=== PATIENT | male | born 1955 | race Caucasian/White ===

== ENCOUNTER 2018-08-31 08:24 | Inpatient (IN) | payer MEDICAID ==
[~2018-08-31] VITALS: Ht 172.7 cm; Wt 102.3 kg
[~2018-08-31 08:24] MED LIST: AMLO10TA12 PO; CARV3.1240 PO; FURO40TA4 PO; POTA10TA79 PO; RIVA20TA PO
[2018-08-31] MEDS ORDERED: cloNIDine HCL 0.1 MG TAB PO ONE (09:00)
[2018-08-31 09:15] LABS: Basophils # (auto) 0 uL; Eosinophils # (auto) 0 uL
[2018-08-31 09:17] LABS: Basophils % (auto) 0.3 % (0.0-2.0); Hematocrit 37.5 % (41.0-53.0); Hemoglobin 10.8 g/dL (13.5-17.5); Lymphocytes # (auto) 0.6 uL; Lymphocytes % (auto) 4.7 % (10.0-50.0); Mean Corpuscular Hemoglobin 20.8 pg (28.0-32.0); Monocytes % (auto) 7.9 % (0.0-12.0); Neutrophils # (auto) 11.5 uL; Neutrophils % (auto) 87.1 % (37.0-80.0); Platelet Count (auto) 294 10^3/uL (140-450); Red Blood Cells 5.22 10^6/uL (4.5-5.90); Red Cell Distribution Width 20.2 % (11.8-14.3); White Blood Cell 13.2 10^3/uL (4.4-10.8)
[2018-08-31 09:20] LABS: Mean Corpuscular Volume 71.8 fL (80.0-100.0)
[2018-08-31 09:23] LABS: INR 1.16 (0.9-1.15); Partial Thromboplastin Time 24.8 sec (23.64-32.05)
[2018-08-31 09:43] LABS: Albumin 3.7 g/dL (3.4-5.0); Anion Gap 9 (5-15); Blood Urea Nitrogen 14 mg/dL (7-18); Calcium 9.5 mg/dL (8.5-10.1); Carbon Dioxide 30 mmol/L (21-32); Chloride 96 mmol/L (98-107); Glucose 206 mg/dL (74-106); Magnesium 2.1 mg/dL (1.6-2.6); Potassium 3.6 mmol/L (3.5-5.1); Sodium 135 mmol/L (136-145)
[2018-08-31 09:50] LABS: Alanine Aminotransferase 310 U/L (16-61); Alkaline Phosphatase 199 U/L (45-117); Aspartate Aminotransferase 175 U/L (15-37); BUN/Creatinine Ratio 11.7; Bilirubin, Total 2.8 mg/dL (0.2-1.0); GFR African American 79 mL/min; GFR Non-African American 65 mL/min; Total Protein 8.3 g/dL (6.4-8.2)
[2018-08-31 10:06] LABS: Lipase 25491 U/L (73-393)
[2018-08-31] MEDS ORDERED: ONDANSETRON HCL 4 MG/2 ML VIAL IV ONE (10:30)
[2018-08-31] MEDS ORDERED: MORPHINE SULF INJ 2 MG/ML SYRINGE 1ML IV ONE (10:30)
[2018-08-31 10:55] LABS: Amylase 3490 U/L (25-115)
[2018-08-31] MEDS ORDERED: SODIUM CHLORIDE 0.9% 2,000 ML IV ONE (11:30)
[2018-08-31] MEDS ORDERED: HYDROmorphone HCL 2 MG/ML VL IM ONE (12:30)
[2018-08-31] MEDS ORDERED: PROMETHAZINE HCL 25 MG/ML 1ML IV ONE (12:30)
[2018-08-31] MEDS ORDERED: HYDROmorphone HCL 2 MG/ML VL IV ONE (12:30)
[2018-08-31] MEDS ORDERED: hydrALAZINE HCL 20 MG/ML VL IV ONE (13:30)
[2018-08-31 15:08] LABS: Amphetamine Screen, Urine NEGATIVE (NEGATIVE); Barbiturate Scree,Urine NEGATIVE (NEGATIVE); Benzodiazephine Screen, Urine NEGATIVE (NEGATIVE); Cannabinoid Screen, Urine NEGATIVE (NEGATIVE); Cocaine Screen, Urine NEGATIVE (NEGATIVE); Phencyclidine Screen, Urine NEGATIVE (NEGATIVE)
[2018-08-31 15:12] LABS: Urine Bacteria FEW /hpf (None Seen); Urine Blood Negative /uL (Negative); Urine Mucus FEW (None Seen); Urine Specific Gravity 1.027 (1.001-1.035); Urine WBC 1 /hpf (0 - 3)
[2018-08-31 15:16] LABS: Opiate Scree,Urine POSITIVE (NEGATIVE)
[2018-08-31] MEDS ORDERED: ONDANSETRON HCL 4 MG/2 ML VIAL IV PRN (17:00)
[2018-08-31] MEDS ORDERED: HYDROmorphone HCL 2 MG/ML VL IV PRN (17:00)
[2018-08-31] MEDS ORDERED: LABETALOL HCL 5 MG/ML ML 20ML VIAL IV PRN (17:00)
[2018-08-31] MEDS: SODIUM CHLORIDE 0.9% 1,000 ML IV SCH (17:05)
[2018-08-31] MEDS: LEVOFLOXACIN 750MG 150 ML IV SCH (17:05)
[2018-08-31] MEDS: CARVEDILOL 3.125 MG TAB PO SCH (21:59)
[2018-08-31] MEDS: metroNIDAZOLE 500MG/100ML 100 ML IV SCH (21:59)
[2018-08-31] MEDS: FAMOTIDINE (10MG/ML) 2ML VL IV SCH (21:59)
[2018-09-01 00:10] VITALS: BP 142/85
[2018-09-01 00:15] VITALS: BP 142/85
[2018-09-01] MEDS: SODIUM CHLORIDE 0.9% 1,000 ML IV SCH ×3 (03:41→23:00)
[2018-09-01 05:00] VITALS: BP 117/69
[2018-09-01] MEDS: metroNIDAZOLE 500MG/100ML 100 ML IV SCH ×3 (05:37→21:30)
[2018-09-01 08:00] VITALS: BP 121/76
[2018-09-01] MEDS: FAMOTIDINE (10MG/ML) 2ML VL IV SCH ×2 (09:11→21:30)
[2018-09-01] MEDS: CARVEDILOL 3.125 MG TAB PO SCH ×2 (09:11→21:31)
[2018-09-01] MEDS: amLODIPine BESYLATE 5 MG TAB PO SCH (09:11)
[2018-09-01 09:52] LABS: Magnesium 2.1 mg/dL (1.6-2.6); Potassium 4.5 mmol/L (3.5-5.1)
[2018-09-01 09:59] LABS: Albumin 3.2 g/dL (3.4-5.0); BUN/Creatinine Ratio 15.6; Bilirubin, Total 0.9 mg/dL (0.2-1.0); Calcium 8.5 mg/dL (8.5-10.1); Total Protein 6.6 g/dL (6.4-8.2)
[2018-09-01 11:20] LABS: Basophils # (auto) 0 uL; Basophils % (auto) 0.2 % (0.0-2.0); Eosinophils # (auto) 0 uL; Eosinophils % (auto) 0.1 % (0.0-7.0); Hemoglobin 10.4 g/dL (13.5-17.5)
[2018-09-01 11:23] LABS: Hematocrit 36.2 % (41.0-53.0); Lymphocytes # (auto) 1.4 uL; Lymphocytes % (auto) 8.9 % (10.0-50.0); Mean Corpuscular Hemoglobin 20.9 pg (28.0-32.0); Mean Corpuscular Hgb Conc. 28.8 g/dL (32.0-36.0); Mean Corpuscular Volume 72.7 fL (80.0-100.0); Monocytes # (auto) 1.4 uL; Neutrophils # (auto) 12.4 uL; Neutrophils % (auto) 81.8 % (37.0-80.0); Platelet Count (auto) 255 10^3/uL (140-450); Red Blood Cells 4.97 10^6/uL (4.5-5.90); White Blood Cell 15.1 10^3/uL (4.4-10.8)
[2018-09-01 11:52] LABS: Red Cell Distribution Width 20.7 % (11.8-14.3)
[2018-09-01] MEDS: LEVOFLOXACIN 750MG 150 ML IV SCH (16:59)
[2018-09-01 17:00] VITALS: BP 133/79
[2018-09-01 22:00] VITALS: BP 133/85
[2018-09-02] MEDS: SODIUM CHLORIDE 0.9% 1,000 ML IV SCH ×2 (02:04→18:10)
[2018-09-02 05:30] VITALS: BP 114/67
[2018-09-02] MEDS: metroNIDAZOLE 500MG/100ML 100 ML IV SCH ×3 (05:30→21:48)
[2018-09-02 07:23] LABS: Basophils # (auto) 0 uL; Basophils % (auto) 0.1 % (0.0-2.0); Eosinophils # (auto) 0 uL; Eosinophils % (auto) 0.1 % (0.0-7.0); Lymphocytes # (auto) 2.1 uL
[2018-09-02 07:29] LABS: Hematocrit 31.2 % (41.0-53.0); Hemoglobin 8.9 g/dL (13.5-17.5); Lymphocytes % (auto) 15.8 % (10.0-50.0); Mean Corpuscular Hemoglobin 20.6 pg (28.0-32.0); Mean Corpuscular Hgb Conc. 28.6 g/dL (32.0-36.0); Mean Corpuscular Volume 71.9 fL (80.0-100.0); Monocytes # (auto) 1.4 uL; Monocytes % (auto) 10.4 % (0.0-12.0); Neutrophils # (auto) 9.7 uL; Neutrophils % (auto) 73.6 % (37.0-80.0); Platelet Count (auto) 225 10^3/uL (140-450); Red Blood Cells 4.33 10^6/uL (4.5-5.90); White Blood Cell 13.2 10^3/uL (4.4-10.8)
[2018-09-02 08:00] VITALS: BP 104/64
[2018-09-02 08:41] LABS: Red Cell Distribution Width 20.2 % (11.8-14.3)
[2018-09-02 09:15] LABS: Albumin 2.7 g/dL (3.4-5.0); Calcium 8.3 mg/dL (8.5-10.1); Potassium 4.1 mmol/L (3.5-5.1)
[2018-09-02 09:18] LABS: Bilirubin, Total 0.6 mg/dL (0.2-1.0); Total Protein 6.5 g/dL (6.4-8.2)
[2018-09-02] MEDS: FAMOTIDINE (10MG/ML) 2ML VL IV SCH ×2 (09:27→21:48)
[2018-09-02] MEDS: CARVEDILOL 3.125 MG TAB PO SCH ×2 (09:28→22:02)
[2018-09-02] MEDS: amLODIPine BESYLATE 5 MG TAB PO SCH (09:28)
[2018-09-02 12:00] VITALS: BP 112/71
[2018-09-02 17:00] VITALS: BP 125/77
[2018-09-02] MEDS: LEVOFLOXACIN 750MG 150 ML IV SCH (17:38)
[2018-09-02 22:00] VITALS: BP 131/83
[2018-09-03] MEDS: SODIUM CHLORIDE 0.9% 1,000 ML IV SCH ×2 (04:58→15:00)
[2018-09-03 05:00] VITALS: BP 124/82
[2018-09-03] MEDS: metroNIDAZOLE 500MG/100ML 100 ML IV SCH ×2 (05:39→14:00)
[2018-09-03 06:52] LABS: Eosinophils # (auto) 0.1 uL
[2018-09-03 06:55] LABS: Hemoglobin 9.2 g/dL (13.5-17.5)
[2018-09-03 07:15] LABS: Potassium 3.7 mmol/L (3.5-5.1)
[2018-09-03 07:20] LABS: BUN/Creatinine Ratio 14.5; Calcium 8.4 mg/dL (8.5-10.1)
[2018-09-03 07:29] LABS: Basophils # (auto) 0.2 uL; Basophils % (auto) 1.3 % (0.0-2.0); Eosinophils % (auto) 0.5 % (0.0-7.0); Hematocrit 31.7 % (41.0-53.0); Lymphocytes % (auto) 15.6 % (10.0-50.0); Mean Corpuscular Hgb Conc. 29.2 g/dL (32.0-36.0); Monocytes # (auto) 1.1 uL; Monocytes % (auto) 8.4 % (0.0-12.0); Neutrophils # (auto) 9.6 uL; Neutrophils % (auto) 74.2 % (37.0-80.0); Nucleated Red Blood Cells % 0.1 %; Platelet Count (auto) 235 10^3/uL (140-450)
[2018-09-03 08:41] VITALS: BP 114/70
[2018-09-03] MEDS: FAMOTIDINE (10MG/ML) 2ML VL IV SCH (11:05)
[2018-09-03] MEDS: amLODIPine BESYLATE 5 MG TAB PO SCH (11:06)
[2018-09-03] MEDS: CARVEDILOL 3.125 MG TAB PO SCH (11:07)
[2018-09-03] MEDS ORDERED: CYANOCOBALAMIN (B-12) 1000 MCG/1 ML VIAL IM ONE (13:00)
[2018-09-03 14:00] VITALS: BP 109/64
[2018-09-03] MEDS ORDERED: FUROSEMIDE 40 MG/4 ML VIAL IV ONE (14:45)
[2018-09-03] MEDS: LEVOFLOXACIN 750MG 150 ML IV SCH (16:58)
== END 2018-09-03 18:15 | disposition home or self-care (01) | DRG 720 ==
LOC: ER 08:24 → TELE 16:53 → TELE-CENTR 23:48
PROVIDERS: ADMIT Nurse Practitioner Acute Care; ATTEND Internal Medicine
DX: A41.9 Sepsis, unspecified organism (principal); K85.10 Biliary acute pancreatitis without necrosis or infection; D68.9 Coagulation defect, unspecified; E11.22 Type 2 diabetes mellitus with diabetic chronic kidney disease; E87.1 Hypo-osmolality and hyponatremia; I50.32 Chronic diastolic (congestive) heart failure; I13.0 Hypertensive heart and chronic kidney disease with heart failure and stage 1 through stage 4 chronic kidney disease, or unspecified chronic kidney disease; K80.20 Calculus of gallbladder without cholecystitis without obstruction; E66.9 Obesity, unspecified; D50.9 Iron deficiency anemia, unspecified; I25.10 Atherosclerotic heart disease of native coronary artery without angina pectoris; J44.9 Chronic obstructive pulmonary disease, unspecified; K29.80 Duodenitis without bleeding; N18.2 Chronic kidney disease, stage 2 (mild); N32.0 Bladder-neck obstruction; N40.0 Benign prostatic hyperplasia without lower urinary tract symptoms; Z68.34 Body mass index [BMI] 34.0-34.9, adult; N39.0 Urinary tract infection, site not specified; Z79.01 Long term (current) use of anticoagulants; Z86.718 Personal history of other venous thrombosis and embolism; Z82.49 Family history of ischemic heart disease and other diseases of the circulatory system; Z82.5 Family history of asthma and other chronic lower respiratory diseases; Z83.3 Family history of diabetes mellitus; Z87.891 Personal history of nicotine dependence; Z79.899 Other long term (current) drug therapy
CPT/HCPCS: 36415; 71045; 74176; 74181; 76705; 80048; 80053; 80061; 80307; 80320; 81001; 82150; 83036; 83540; 83550; 83690; 83735; 83880; 84443; 84484; 85025; 85610; 85730; 87086; 93005; 96361; 96374; 96375; G0378; J1956; J2405; J3490

== ENCOUNTER 2018-11-17 09:34 | Inpatient (IN) | payer MEDICAID ==
[~2018-11-17] VITALS: Ht 172.7 cm; Wt 102.8 kg
[~2018-11-17 09:34] MED LIST changes: -AMLO10TA12 PO; +AMLO10TA13 PO
[2018-11-17] MEDS ORDERED: ONDANSETRON HCL 4 MG/2 ML VIAL ONE (09:53)
[2018-11-17] MEDS ORDERED: LIDOCAINE VISCOUS 2% 15ML UD PO ONE (10:00)
[2018-11-17] MEDS ORDERED: DONNATAL 5ml ORAL Elix (BELLADONNA ALK-PHENOBARB) PO ONE (10:00)
[2018-11-17] MEDS ORDERED: ALUM & MAG HYDROX-SIMETH LIQ(MAALOX) 30 ML PO ONE (10:00)
[2018-11-17] MEDS ORDERED: ONDANSETRON HCL 4 MG/2 ML VIAL IV ONE ×2 (10:00→12:30)
[2018-11-17 10:11] LABS: Basophils % (auto) 0.3 % (0.0-2.0); Eosinophils # (auto) 0.1 uL; Hemoglobin 11.7 g/dL (13.5-17.5); Monocytes # (auto) 1.1 uL
[2018-11-17 10:13] LABS: Basophils # (auto) 0.1 uL; Eosinophils % (auto) 0.4 % (0.0-7.0); Hematocrit 39.4 % (41.0-53.0); Lymphocytes # (auto) 3.8 uL; Lymphocytes % (auto) 21.9 % (10.0-50.0); Mean Corpuscular Hemoglobin 21.9 pg (28.0-32.0); Mean Corpuscular Hgb Conc. 29.7 g/dL (32.0-36.0); Mean Corpuscular Volume 73.6 fL (80.0-100.0); Monocytes % (auto) 6.6 % (0.0-12.0); Neutrophils # (auto) 12.3 uL; Neutrophils % (auto) 70.8 % (37.0-80.0); Platelet Count (auto) 276 10^3/uL (140-450); Red Blood Cells 5.34 10^6/uL (4.5-5.90); White Blood Cell 17.4 10^3/uL (4.4-10.8)
[2018-11-17 10:19] LABS: Red Cell Distribution Width 20.3 % (11.8-14.3)
[2018-11-17 10:30] LABS: Albumin 3.5 g/dL (3.4-5.0); Anion Gap 11 (5-15); Blood Urea Nitrogen 12 mg/dL (7-18); Calcium 8.5 mg/dL (8.5-10.1); Carbon Dioxide 29 mmol/L (21-32); Chloride 98 mmol/L (98-107); Glucose 193 mg/dL (74-106); Magnesium 1.8 mg/dL (1.6-2.6); Potassium 3.4 mmol/L (3.5-5.1); Sodium 138 mmol/L (136-145)
[2018-11-17] MEDS ORDERED: PROMETHAZINE HCL 25 MG/ML 1ML IV ONE (10:30)
[2018-11-17 10:33] LABS: Alanine Aminotransferase 294 U/L (16-61); Aspartate Aminotransferase 247 U/L (15-37); BUN/Creatinine Ratio 10.4; GFR African American 83 mL/min; GFR Non-African American 69 mL/min
[2018-11-17 10:39] LABS: Alkaline Phosphatase 186 U/L (45-117); Bilirubin, Total 1.6 mg/dL (0.2-1.0); Total Protein 7.9 g/dL (6.4-8.2)
[2018-11-17] MEDS ORDERED: PIPERACILLIN-TAZOB 3.375GM 100 ML IV ONE (11:00)
[2018-11-17] MEDS ORDERED: SODIUM CHLORIDE 0.9% 1,000 ML IV ONE ×2 (11:02)
[2018-11-17 11:06] LABS: Amylase 4590 U/L (25-115)
[2018-11-17 11:15] LABS: Lactic Acid w/Reflex 3.2 mmol/L (0.4-2.0)
[2018-11-17 11:31] LABS: Lipase 39927 U/L (73-393)
[2018-11-17] MEDS ORDERED: NITROGLYCERIN 0.4 MG SL TAB SL PRN (12:30)
[2018-11-17] MEDS ORDERED: DEXTROSE (50%) 50ML SYRG IV PRN (12:30)
[2018-11-17] MEDS ORDERED: NALBUPHINE HCL 10 MG/1ml INJECTION IV PRN (12:30)
[2018-11-17] MEDS ORDERED: MORPHINE SULF INJ 2 MG/ML SYRINGE 1ML IV PRN (12:30)
[2018-11-17] MEDS ORDERED: MORPHINE SULFATE 4 MG/ML SYR/VIAL IV ONE (12:30)
[2018-11-17] MEDS ORDERED: ALBUTEROL SULF 2.5 MG/0.5ML(0.5%) NEB SOLN NEB PRN (12:30)
[2018-11-17] MEDS ORDERED: LORazepam 2MG/ML-1ML VIAL IV PRN (12:30)
[2018-11-17] MEDS: SODIUM CHLORIDE 0.9% 1,000 ML IV SCH ×2 (12:34→18:12)
[2018-11-17] MEDS: HYDROmorphone HCL 2 MG/ML VL IV PRN ×3 (12:57→22:36)
[2018-11-17] MEDS ORDERED: POTASSIUM CHL 20MEQ/100ML 100 ML IV SCH ×2 (13:15→16:00)
[2018-11-17 13:53] VITALS: BP 159/115
--- NOTE | 2018-11-17 13:53 | NUR ---
Telemetry admit from ER JANA CRUZ admitted to Telemetry unit. Patient oriented to ELISA GOMEZ RN primary RN, unit, room, bed, and unit policies regarding patient care and visiting hours. Patient now on continuous telemetry monitoring, tele box # 60 and telemetry reading on arrival to unit is sinus tach 105. Patient placed on bedside oxygen 3L NC, patient complains of shortness of breath. Oxygen saturation 91% on room air. Patient states abdominal pain 4/10, will medicate per orders. Reviewed plan of care with patient, patient verbalized understanding. Bed in low and locked position,call light within reach. Will continue to monitor Q1 hour and PRN.
[2018-11-17 14:50] VITALS: BP 159/115
[2018-11-17 16:39] VITALS: BP 163/107
[2018-11-17] MEDS: metroNIDAZOLE 500MG/100ML 100 ML IV SCH ×2 (16:55→22:34)
--- NOTE | 2018-11-17 17:08 | NUR ---
Nausea and Vomiting Patient had an episode of vomiting, patient states he still feels nauseous. Will medicate per orders. Will continue to monitor Q1 hor and PRN.
[2018-11-17] MEDS: PROMETHAZINE HCL 25 MG/ML 1ML IV PRN (17:09)
[2018-11-17] MEDS: ACCU-CHEK COMFORT CURVE STRIP VI SCH (17:22)
[2018-11-17] MEDS: InsuLIN REG 1unit/0.01ml Soln (100units/ml) SC SCH (17:22)
--- NOTE | 2018-11-17 18:27 | NUR ---
Pain Patient complains of abdominal pain 9/10 and is requesting pain medication. Will medicate per orders. Will continue to monitor Q1 hour and PRN.
--- NOTE | 2018-11-17 18:57 | NUR ---
urine sample collected and sent to lab
[2018-11-17 18:58] LABS: Urine WBC None Seen /hpf (0 - 3)
[2018-11-17 19:05] LABS: Urine Bacteria NONE SEEN /hpf (None Seen); Urine Blood Negative /uL (Negative); Urine Specific Gravity 1.015 (1.001-1.035)
--- NOTE | 2018-11-17 19:23 | NUR ---
Closing Note Report given to welfare director RN. No signs or symptoms of distress noted at this time. Family at bedside
--- NOTE | 2018-11-17 19:30 | NUR ---
Opening Shift Note Assumed care of patient, awake and alert, and c/o pain. No S/S of resp distress. This RN into pt's room to explain plan for tx of pain; pt VU. Also instructed on POC including npo after 0000 and to call for assist PRN. This RN will continue to monitor for changes Q1hr and PRN.
[2018-11-17 22:06] VITALS: BP 164/99
--- NOTE | 2018-11-17 22:15 | NUR ---
Received call from Tele Room that pt had brief "approx 6 second run" of SVT. Pt resting quietly; asymptomatic.
[2018-11-17] MEDS: FAMOTIDINE (10MG/ML) 2ML VL IV SCH (22:35)
--- NOTE | 2018-11-17 22:35 | NUR ---
Respiratory note: PT SEEN AND ASSESSED FOR PRN MED NEB TX AT 2235. TX NOT INDICATED AT THIS TIME. PT DISPLAYING NO SIGNS OF DISTRESS. PT STATED THAT HE FEELS GOOD. BREATH SOUNDS WERE CLEAR AND DIMINISHED. HR 95 RR 18 POX 97% ON 3L NASAL CANNULA. PT AWARE TO CALL FOR RT IF ANY DISTRESS OCCURS.
[2018-11-18] MEDS: ACCU-CHEK COMFORT CURVE STRIP VI SCH ×4 (00:22→17:37)
[2018-11-18] MEDS: PROMETHAZINE HCL 25 MG/ML 1ML IV PRN ×3 (00:31→20:34)
[2018-11-18] MEDS: HYDROmorphone HCL 2 MG/ML VL IV PRN ×3 (02:45→20:47)
[2018-11-18 05:00] VITALS: BP 151/92
[2018-11-18] MEDS: InsuLIN REG 1unit/0.01ml Soln (100units/ml) SC SCH ×4 (06:00→17:38)
[2018-11-18] MEDS: metroNIDAZOLE 500MG/100ML 100 ML IV SCH ×3 (06:07→22:40)
[2018-11-18 06:13] LABS: Basophils # (auto) 0 uL; Eosinophils # (auto) 0 uL; Hemoglobin 10.7 g/dL (13.5-17.5); Lymphocytes # (auto) 0.8 uL
[2018-11-18 06:16] LABS: Basophils % (auto) 0.2 % (0.0-2.0); Hematocrit 36.2 % (41.0-53.0); Lymphocytes % (auto) 6.2 % (10.0-50.0); Mean Corpuscular Hemoglobin 21.9 pg (28.0-32.0); Mean Corpuscular Hgb Conc. 29.6 g/dL (32.0-36.0); Monocytes # (auto) 0.9 uL; Monocytes % (auto) 7.4 % (0.0-12.0); Neutrophils # (auto) 10.9 uL; Neutrophils % (auto) 86.2 % (37.0-80.0); Platelet Count (auto) 207 10^3/uL (140-450); Red Cell Distribution Width 19.7 % (11.8-14.3); White Blood Cell 12.6 10^3/uL (4.4-10.8)
[2018-11-18 06:22] LABS: INR 1.16 (0.9-1.15); Partial Thromboplastin Time 26.8 sec (23.64-32.05)
[2018-11-18 06:28] LABS: Potassium 4.3 mmol/L (3.5-5.1)
[2018-11-18 06:36] LABS: Albumin 3.2 g/dL (3.4-5.0); BUN/Creatinine Ratio 13.9; Calcium 7.9 mg/dL (8.5-10.1)
[2018-11-18 06:44] LABS: Bilirubin, Total 0.3 mg/dL (0.2-1.0); Total Protein 6.8 g/dL (6.4-8.2)
--- NOTE | 2018-11-18 07:25 | NUR ---
Respiratory note: HR 92, RR 14, SPO2 97% ON RA, BS CLEAR AND DIMINISHED.PRN MED NEB TX NOT INDICATED OR WANTED AT THIS TIME. PT INFORMED TO HIT CALL BUTTON IF FEELING SOB OR WHEEZING.NO SIGNS OR SYMPTOMS OF RESPIRATORY DISTRESS NOTED.
--- NOTE | 2018-11-18 07:40 | NUR ---
Opening Note Received report from rn night RN. Patient is resting in bed with eyes closed, easy to wake by calling name. No signs or symptoms of distress noted at this time. Patient is on 3L NC, respirations even and unlabored. Reviewed plan of care with patient, patient verbalized understanding. Bed in low and locked position, call light within reach. Will continue to monitor Q1 hour and PRN.
[2018-11-18] MEDS: cefTRIAXone 1GM/50ML D5W 50 ML IV SCH (08:47)
[2018-11-18 08:51] VITALS: BP 150/87
[2018-11-18] MEDS: SODIUM CHLORIDE 0.9% 1,000 ML IV SCH ×4 (10:17→21:38)
[2018-11-18] MEDS: FAMOTIDINE (10MG/ML) 2ML VL IV SCH ×2 (10:17→22:41)
[2018-11-18] MEDS ORDERED: DOCUSATE SOD 100 MG CAP PO ONE (11:45)
[2018-11-18] MEDS: LACTULOSE 20Gm/30ML SOLN PO PRN ×2 (11:56→20:48)
[2018-11-18] MEDS ORDERED: FUROSEMIDE 20 MG/2 ML VIAL IV ONE (12:00)
[2018-11-18] MEDS ORDERED: hydrALAZINE HCL 20 MG/ML VL IV PRN (12:00)
--- NOTE | 2018-11-18 12:31 | NUR ---
Spoke with Dr. Loving New orders received for MRCP and to keep the patient NPO. Call Dr. Loving with MRCP results. Will implement new orders. Patient updated on plan of care. Will continue to monitor Q1 hour and PRN.
[2018-11-18 12:45] VITALS: BP 147/94
--- NOTE | 2018-11-18 13:48 | NUR ---
Pain Patient complains of abdominal pain 7/10 and is requesting pain medications. Will medicate per orders.
--- NOTE | 2018-11-18 13:50 | NUR ---
technician helper instrument at bedside
--- NOTE | 2018-11-18 15:10 | NUR ---
Patient taken down for MRCP
[2018-11-18 16:23] VITALS: BP 142/87
--- NOTE | 2018-11-18 18:30 | NUR ---
Paged Dr. Loving regarding MRCP results Awaiting call back.
--- NOTE | 2018-11-18 19:12 | NUR ---
Closing Note Report given to second shift supervisor RN. No signs or symptoms fo distress noted at this time.
--- NOTE | 2018-11-18 19:15 | NUR ---
Opening Shift Note Assumed care of patient, resting quietly in bed. No S/S of resp distress or pain at this time. This RN instructed pt on POC and to call for assist PRN. This RN will continue to monitor for changes Q1hr and PRN. Bed in low position. Nurse call light within pt's reach.
[2018-11-18 22:00] VITALS: BP 133/80
--- NOTE | 2018-11-18 22:01 | NUR ---
PT SEEN AND ASSESSED FOR PRN MED NEB TX AT 2201. TX NOT INDICATED AT THIS TIME. PT DISPLAYING NO SIGNS OF DISTRESS. PT STATED THAT HE FEELS GOOD. BREATH SOUNDS WERE CLEAR AND DIMINISHED. HR 108 RR 18 POX 96% ON 3L NASAL CANNULA. PT AWARE TO CALL FOR RT IF ANY DISTRESS OCCURS.
[2018-11-18] MEDS: DOCUSATE SOD 100 MG CAP PO SCH (22:42)
[2018-11-19 04:58] LABS: Basophils # (auto) 0 uL; Eosinophils # (auto) 0 uL; Eosinophils % (auto) 0.1 % (0.0-7.0); Lymphocytes % (auto) 11.2 % (10.0-50.0); Nucleated Red Blood Cells % 0.1 %; White Blood Cell 8.7 10^3/uL (4.4-10.8)
[2018-11-19 05:00] VITALS: BP 120/89
[2018-11-19 05:01] LABS: Basophils % (auto) 0.2 % (0.0-2.0); Hemoglobin 10.5 g/dL (13.5-17.5); Mean Corpuscular Hemoglobin 22.7 pg (28.0-32.0); Mean Corpuscular Hgb Conc. 30.8 g/dL (32.0-36.0); Mean Corpuscular Volume 73.6 fL (80.0-100.0); Monocytes % (auto) 11.8 % (0.0-12.0); Neutrophils # (auto) 6.6 uL; Neutrophils % (auto) 76.7 % (37.0-80.0); Platelet Count (auto) 190 10^3/uL (140-450); Red Blood Cells 4.62 10^6/uL (4.5-5.90); Red Cell Distribution Width 19.9 % (11.8-14.3)
[2018-11-19 05:16] LABS: BUN/Creatinine Ratio 12.8; Calcium 8.1 mg/dL (8.5-10.1); Magnesium 2.1 mg/dL (1.6-2.6); Potassium 3.7 mmol/L (3.5-5.1)
[2018-11-19 05:18] LABS: INR 1.23 (0.9-1.15)
[2018-11-19 05:19] LABS: Bilirubin, Total 2.1 mg/dL (0.2-1.0); Total Protein 6.6 g/dL (6.4-8.2)
[2018-11-19] MEDS: InsuLIN REG 1unit/0.01ml Soln (100units/ml) SC SCH ×2 (06:00)
[2018-11-19] MEDS: ACCU-CHEK COMFORT CURVE STRIP VI SCH ×2 (06:00)
[2018-11-19] MEDS: metroNIDAZOLE 500MG/100ML 100 ML IV SCH ×3 (07:51→22:02)
[2018-11-19 08:43] VITALS: BP 106/59
[2018-11-19] MEDS: SODIUM CHLORIDE 0.9% 1,000 ML IV SCH ×3 (10:08→22:02)
[2018-11-19] MEDS: cefTRIAXone 1GM/50ML D5W 50 ML IV SCH (10:09)
[2018-11-19] MEDS: DOCUSATE SOD 100 MG CAP PO SCH ×2 (10:09→22:02)
[2018-11-19] MEDS: FAMOTIDINE (10MG/ML) 2ML VL IV SCH ×2 (10:09→22:02)
[2018-11-19 12:52] VITALS: BP 150/93
--- NOTE | 2018-11-19 14:11 | NUR ---
NUTRITION ASSESSMENT NOTES Please refer to link notes of nutrition screen form filed under the intervention section of the plan of care for further details. Est. Needs: 0 kcal to 2350 kcal (20-23 kcal/kgBW), 70 gms to 84 gms pro (1.0-1.2 gms/kgIBW: 84 kg). Will continue to monitor pertinent labs and reassess nutrient need prn Thank you. Addendum: 11/19/18 at [address] Amended: Links added.
--- NOTE | 2018-11-19 14:45 | NUR ---
Respiratory note: PT SEEN AND ASSESSED FOR PRN MED NEB TX. TX NOT INDICATED AT THIS TIME. B/S CLEAR- DIMINISHED. HR 107 RR 18 POX 93% ON 3L NASAL CANNULA. PT AWARE TO CALL FOR RT IF ANY DISTRESS OCCURS.
[2018-11-19 16:55] VITALS: BP 130/80
--- NOTE | 2018-11-19 19:30 | NUR ---
Opening Shift Note Assumed care of patient, awake and alert. According to Dr. Loving notes, pt will follow up for outpatient surgery after inflammation has resolved and 2-3 weeks s/p discharge. No S/S of distress/SOB or pain. IV. to Right arm patent and infusing fluids per orders. Instructed on POC and to call for assist PRN, will continue to monitor for changes Q1hr and PRN.
[2018-11-19 20:00] VITALS: BP 147/94
[2018-11-19 22:00] VITALS: BP 118/71
[2018-11-19] MEDS: HYDROmorphone HCL 2 MG/ML VL IV PRN (22:19)
[2018-11-20] MEDS: SODIUM CHLORIDE 0.9% 1,000 ML IV SCH ×3 (04:30→20:06)
--- NOTE | 2018-11-20 04:30 | NUR ---
Very Large BM on commode. Emptied half a bucket of yellow/brown stool. No distress noted. Toilet clogged up when flushing stool. Called [facility]S and notified.
[2018-11-20 05:00] VITALS: BP 117/72
[2018-11-20 06:12] LABS: Basophils # (auto) 0 uL; Basophils % (auto) 0.2 % (0.0-2.0); Eosinophils # (auto) 0.1 uL; Mean Corpuscular Hgb Conc. 29.5 g/dL (32.0-36.0); Monocytes # (auto) 0.9 uL; Monocytes % (auto) 10.2 % (0.0-12.0); Nucleated Red Blood Cells % 0.1 %; White Blood Cell 9.3 10^3/uL (4.4-10.8)
[2018-11-20 06:14] LABS: Eosinophils % (auto) 0.8 % (0.0-7.0); Hemoglobin 9.4 g/dL (13.5-17.5); Lymphocytes # (auto) 1.3 uL; Lymphocytes % (auto) 14.6 % (10.0-50.0); Mean Corpuscular Volume 74.5 fL (80.0-100.0); Neutrophils # (auto) 6.9 uL; Neutrophils % (auto) 74.2 % (37.0-80.0); Platelet Count (auto) 175 10^3/uL (140-450); Red Cell Distribution Width 19.7 % (11.8-14.3)
[2018-11-20] MEDS: metroNIDAZOLE 500MG/100ML 100 ML IV SCH ×3 (06:26→21:26)
[2018-11-20 06:28] LABS: Calcium 8.1 mg/dL (8.5-10.1); Potassium 3.8 mmol/L (3.5-5.1)
[2018-11-20 06:30] LABS: Albumin 2.7 g/dL (3.4-5.0); BUN/Creatinine Ratio 13.8
[2018-11-20 06:33] LABS: Bilirubin, Total 0.5 mg/dL (0.2-1.0); Total Protein 6.2 g/dL (6.4-8.2)
--- NOTE | 2018-11-20 08:45 | NUR ---
PT. ASSESSED, FOR PRN. MN. TX. , NO RESP. DISTRESS OR SOB NOTED. PT. STATES HIS BREATHING HAS BEEN GOOD. HR 106,RR 18, SP02 98% ON RA. PRN. MN. TX. NOT INDICATED AT THIS TIME. TX. NOT GIVEN, PT. IS AWARE HE MAY CALL IF NEEDED.
[2018-11-20] MEDS: cefTRIAXone 1GM/50ML D5W 50 ML IV SCH (09:27)
[2018-11-20 09:29] VITALS: BP 91/63
[2018-11-20] MEDS: FAMOTIDINE (10MG/ML) 2ML VL IV SCH ×2 (09:32→21:25)
--- NOTE | 2018-11-20 09:37 | NUR ---
OPENING SHIFT NOTE: THIS RN AT BEDSIDE. PATIENT CURRENTLY RESTING IN BED. NASAL CANNULA IN USE. NO C/O PAIN OR DISCOMFORT AT THIS TIME. BE IS LOCKED IN LOWEST POSITION. ROOM IS FREE OF CLUTTER. EDUCATED USE OF CALL LIGHT AND ROOM PHONE WITH THIS RN EXTENSION. PATIENT VERBALIZED UNDERSTANDING. PATIENT REQUEST TO LEAVE BLINDS CLOSED AT THIS TIME.
--- NOTE | 2018-11-20 09:59 | NUR ---
DR. ORTIZ AT BEDSIDE.
[2018-11-20] MEDS: DOCUSATE SOD 100 MG CAP PO SCH ×2 (10:00→21:26)
--- NOTE | 2018-11-20 10:40 | NUR ---
PATIENT OKAY TO SHOWER. IV SITE COVERED AND EDUCATION GIVEN FOR RETURNING TO BED. PATIENT VERBALIZED UNDERSTANDING.
[2018-11-20] MEDS ORDERED: VANCOMYCIN PER PHARMACY 0 MG IV SCH (10:45)
[2018-11-20] MEDS ORDERED: hydrALAZINE HCL 20 MG/ML VL IV PRN (10:45)
[2018-11-20] MEDS: VANCOMYCIN 1GM/250ML 250 ML IV SCH ×2 (11:26→20:06)
--- NOTE | 2018-11-20 11:40 | NUR ---
PATIENT BACK IN BED FROM SHOWER. IV INTACT. TELE MONITOR APPLIED. PATIENT RESTING IN BED WITH NO SIGNS OF DISTRESS.
[2018-11-20 13:00] VITALS: BP 121/77
[2018-11-20 14:03] VITALS: BP 91/63
[2018-11-20 16:50] VITALS: BP 102/54
--- NOTE | 2018-11-20 16:59 | NUR ---
PATIENT REQUESTED TO CHANGE PASSWORD. UPDATED IN THE COMPUTER REQUESTED. SPOKE WITH FAMILY. UPDATED ON PLAN OF CARE.
--- NOTE | 2018-11-20 17:20 | NUR ---
IV DISCONTINUED IN MARIANGEL. NEW IV STARTED IN LEFT HAND, DOCUMENTED IN EMR.
--- NOTE | 2018-11-20 18:09 | NUR ---
CLOSING SHIFT NOTE: PATIENT LYING IN BED. NO C/O OF PAIN. NO S/S OF DISTRESS NOTED. BED IN LOWEST LOCKED POSITION. CALL LIGHT IN REACH. PATIENT VERBALIZED UNDERSTANDING TO CALL FOR ASSISTANCE.
--- NOTE | 2018-11-20 19:26 | NUR ---
ENDORSED CARE TO LEODAN GOMEZ RN.
[2018-11-20 21:51] VITALS: BP 133/89
--- NOTE | 2018-11-20 22:17 | NUR ---
Respiratory note: ASSESSED PT FOR PRN MED NEB TX. PT IS CURRENTLY ON 3 L/M NC: HR 96, RR 18, SPO2 95%. PT SHOWS NO S/S OF SOB OR RESPIRATORY DISTRESS. MED NEB TX NOT INDICATED AT THIS TIME. INFORMED PT IF SOB TO CONTACT RESPIRATORY FOR BREATHING TX. WILL CONTINUE TO MONITOR
[2018-11-21] MEDS: VANCOMYCIN 1GM/250ML 250 ML IV SCH ×2 (03:54→11:52)
[2018-11-21 04:42] VITALS: BP 136/81
[2018-11-21] MEDS: metroNIDAZOLE 500MG/100ML 100 ML IV SCH ×2 (05:05→14:43)
--- NOTE | 2018-11-21 06:18 | NUR ---
PATIENT DENIES ANY ABDOMINAL PAIN, URINATING WELL, ON IV ANTIBIOTICS, PENDING AM LABS THIS MORNING.
[2018-11-21 08:00] VITALS: BP 101/75
--- NOTE | 2018-11-21 08:45 | NUR ---
OPENING SHIFT NOTE: PATIENT SITTING ON SIDE OF THE BED. NASAL CANNULA IN PLACE, IV RUNNING. PATIENT DENIES ANY PAIN AT THIS TIME. UPDATED ON PLAN OF CARE. ASSISTED TO BATHROOM, PATIENT STATED HE HAD A BM. WILL CONTINUE TO MONITOR.
[2018-11-21 08:49] LABS: Hematocrit 33.4 % (41.0-53.0); Hemoglobin 9.8 g/dL (13.5-17.5)
[2018-11-21] MEDS: SODIUM CHLORIDE 0.9% 1,000 ML IV SCH ×2 (08:57→14:43)
[2018-11-21 09:01] LABS: Calcium 8.6 mg/dL (8.5-10.1); Potassium 3.8 mmol/L (3.5-5.1)
[2018-11-21] MEDS: DOCUSATE SOD 100 MG CAP PO SCH (09:04)
[2018-11-21] MEDS: cefTRIAXone 1GM/50ML D5W 50 ML IV SCH (09:04)
[2018-11-21] MEDS: FAMOTIDINE (10MG/ML) 2ML VL IV SCH (09:04)
[2018-11-21 09:06] LABS: BUN/Creatinine Ratio 9.1; Bilirubin, Total 0.4 mg/dL (0.2-1.0); Total Protein 6.8 g/dL (6.4-8.2)
--- NOTE | 2018-11-21 10:03 | NUR ---
Respiratory note: PT ASSESSED FOR PRN MED NEB TX, TX IS NOT INDICATED AT THIS TIME. POX 98% ON 3L NC, HR 74, RR 16. B/S ARE CLEAR AND DIMINISHED THROUGHOUT. PT IS AWARE TO PRESS THE CALL LIGHT BUTTON IF HE FEELS SOB TO RECEIVE A MED NEB TX.
--- NOTE | 2018-11-21 11:16 | NUR ---
DR. SHAIKH LAWLER. NEW ORDERS GIVEN. PATIENT VERBALIZED UNDERSTANDING.
[2018-11-21 12:00] VITALS: BP 122/86
--- NOTE | 2018-11-21 14:44 | NUR ---
Nutrition Follow-up Notes Wt.: 102.8 kg as of yesterday. Pt's on oxygen via nasal cannula, asleep, no immediate family member at bedside during rounds this morning. Pt's no signs of distress noted earlier, on Full Liquid diet with good PO intake aeb 90% ave. consumed meals (x5) in last 2 days. Noted pt's to start today on Soft diet with active Surgical consult. Est. Needs: 2050 kcal to 2350 kcal (20-23 kcal/kgBW), 70 gms to 84 gms pro (1.0-1.2 gms/kgIBW: 84 kg). Will continue to monitor pertinent labs and reassess nutrient need prn Labs: Gluc 115 H, CO2 39 H, AST 80 H, ALT 121 H; Alb 3.0 L Skin: Ubaldo scale 10, high risk, skin intact per director consumer. GI: Pt had 1 BM yesterday per director consumer. PES: Altered nutrition related lab values r/t current/chronic medical condition aeb hypercapnia, low BUN,elev. LFTs, lipasem amylase, hyperbilirubinemia, hypocalcemia and mild hypoalbuminemia Obesity r/t food intake more than body requirement aeb 145% IBW, BMI 34.2 kg/m2 and increased body adiposity Will continue to monitor PO intake, skin status, pertinent labs and weight trend. F/u in 3 to 5 days. Rec.:1.) If LFTs remain elev. consider Soft Low Fat diet. 2.) If Albumin continues trending down, consider Prostat 1 pkt BID. 3.) Continue close supervision with meals. 4.) Refer to RD for further nutrition educ. and weight monitoring upon discharge. 5.) Continue current plan of care.
--- NOTE | 2018-11-21 15:09 | NUR ---
SPOKE WITH FAMILY OVER THE PHONE. PASSWORD VERIFIED. UPDATED ON PLAN OF CARE.
--- NOTE | 2018-11-21 15:10 | NUR ---
SPOKE WITH DR. ORTIZ REGARDING PLAN OF CARE. PATIENT IS OKAY FOR DISCHARGE.
[2018-11-21] MEDS ORDERED: LEVO500T21 PO (15:19)
[2018-11-21] MEDS ORDERED: METR500T PO (15:19)
--- NOTE | 2018-11-21 16:04 | NUR ---
CALL OUT TO PATIENT'S NEXT OF KIN ON FILE, FLAKO. VOICEMAIL LEFT REGARDING DISCHARGE.
[2018-11-21 17:00] VITALS: BP 116/71
--- NOTE | 2018-11-21 19:02 | NUR ---
Discharge Discharge education and paperwork given to the patient per MD's order. Patient verbalized understanding. IV removed with clean technique, catheter intact. Dressing applied, patient tolerated well. No trauma to site. Telemonitor removed and returned. Patient instructed to collect personal belongings. patient verbalized understanding. Patient stated "I notified my ride and she should be here in about 45 minutes." Instructed patient to notify staff once transportation arrives. Patient verbalized understanding. Respirations are even and unlabored, no distress noted.
--- NOTE | 2018-11-21 19:10 | NUR ---
Care endorsed to RANDY Zhou.
--- NOTE | 2018-11-21 19:25 | NUR ---
PATIENT LEFT VIA WHEELCHAIR WITH SON AT 1925, DC INSTRUCTIONS PROVIDED BY PREVIOUS RN.
[2018-11-21] MEDS ORDERED: VANCOMYCIN 1GM/250ML 250 ML IV SCH (20:00)
[2018-11-21] MEDS ORDERED: VANCOMYCIN 1,500 MG in D5W 5% 250 ML IV SCH (20:00)
== END 2018-11-21 19:25 | disposition home or self-care (01) | DRG 720 ==
LOC: ER 09:34 → TELE 09:35 → TELE-WESTW 13:51
PROVIDERS: ADMIT Internal Medicine; ATTEND Internal Medicine
DX: A41.9 Sepsis, unspecified organism (principal); J96.10 Chronic respiratory failure, unspecified whether with hypoxia or hypercapnia; K85.10 Biliary acute pancreatitis without necrosis or infection; I27.20 Pulmonary hypertension, unspecified; E11.22 Type 2 diabetes mellitus with diabetic chronic kidney disease; I13.0 Hypertensive heart and chronic kidney disease with heart failure and stage 1 through stage 4 chronic kidney disease, or unspecified chronic kidney disease; I50.32 Chronic diastolic (congestive) heart failure; K86.1 Other chronic pancreatitis; K80.20 Calculus of gallbladder without cholecystitis without obstruction; N40.0 Benign prostatic hyperplasia without lower urinary tract symptoms; E87.6 Hypokalemia; N18.2 Chronic kidney disease, stage 2 (mild); D63.8 Anemia in other chronic diseases classified elsewhere; E66.9 Obesity, unspecified; K59.00 Constipation, unspecified; J44.9 Chronic obstructive pulmonary disease, unspecified; E78.5 Hyperlipidemia, unspecified; I25.10 Atherosclerotic heart disease of native coronary artery without angina pectoris; Z86.718 Personal history of other venous thrombosis and embolism; Z99.81 Dependence on supplemental oxygen; Z82.49 Family history of ischemic heart disease and other diseases of the circulatory system; Z83.3 Family history of diabetes mellitus; Z87.891 Personal history of nicotine dependence; Z79.01 Long term (current) use of anticoagulants; Z79.899 Other long term (current) drug therapy; Z68.34 Body mass index [BMI] 34.0-34.9, adult
CPT/HCPCS: 36415; 71045; 74176; 74181; 76705; 80053; 80202; 81001; 82150; 82962; 83036; 83605; 83690; 83735; 83880; 84484; 85014; 85018; 85025; 85610; 85730; 86850; 86900; 86901; 87040; 87077; 87186; 93005; 93306; 96374; 96375; 96376; G0378; J0696; J2405; J2543; J3480; J3490

== ENCOUNTER → 2021-11-01 | Outpatient (CLI) | payer MEDICARE ==
[~2021-11-01] MED LIST changes: +ALBUTEROL SULF 2.5 MG/0.5ML(0.5%) NEB SOLN ONE; +AMLO-496 PO; -AMLO10TA13 PO; -FURO40TA4 PO; -POTA10TA79 PO; -RIVA20TA PO; +SODIUM CHLORIDE 0.9 % NEB SOLN 3ML NEB ONE
== END | disposition home or self-care (01) ==
LOC: RT 15:42
PROVIDERS: ATTEND Internal Medicine Pulmonary Disease
DX: J44.9 Chronic obstructive pulmonary disease, unspecified (principal); R06.00 Dyspnea, unspecified
CPT/HCPCS: 94060; 94727; 94729

== ENCOUNTER 2022-12-11 13:56 | Inpatient (IN) | payer MEDICARE ==
[~2022-12-11] VITALS: Ht 172.7 cm; Wt 102.6 kg
[~2022-12-11 13:56] MED LIST changes: -ALBUTEROL SULF 2.5 MG/0.5ML(0.5%) NEB SOLN ONE; -AMLO-496 PO; +AMLO1TAB23 PO; -SODIUM CHLORIDE 0.9 % NEB SOLN 3ML NEB ONE
[2022-12-11] MEDS ORDERED: IPRATROPIUM BROM 0.5 MG/2.5ML INH SOL HHN ONE (14:00)
[2022-12-11] MEDS ORDERED: methylPREDNISolone SOD SUCC 40 MG/ML VL IV ONE (14:00)
[2022-12-11] MEDS ORDERED: NITROGLYCERIN 0.4 MG SL TAB SL ONE (14:00)
[2022-12-11] MEDS ORDERED: ALBUTEROL SULF 2.5 MG/0.5ML(0.5%) NEB SOLN HHN ONE (14:00)
[2022-12-11 14:10] LABS: Base Excess -5.5 mmol/L (-2.0-2.0)
[2022-12-11 14:37] LABS: Basophils # (auto) 0 10 ^3/uL (0-0.2); Eosinophils # (auto) 0 10 ^3/uL (0-0.8); Mean Corpuscular Volume 91.5 fL (80.0-100.0); Nucleated Red Blood Cells % 0.1 %
[2022-12-11 14:38] LABS: Basophils % (auto) 0.2 % (0.0-2.0); Hematocrit 41.1 % (41.0-53.0); Hemoglobin 11.9 g/dL (13.5-17.5); Lymphocytes # (auto) 0.3 10 ^3/uL (0.4-5.4); Lymphocytes % (auto) 2.5 % (10.0-50.0); Mean Corpuscular Hemoglobin 26.5 pg (28.0-32.0); Monocytes # (auto) 0.9 10 ^3/uL (0-1.3); Monocytes % (auto) 6.2 % (0.0-12.0); Neutrophils # (auto) 12.5 10 ^3/uL (1.6-8.6); Neutrophils % (auto) 91.1 % (37.0-80.0); Red Cell Distribution Width 17.2 % (11.8-14.3); White Blood Cell 13.7 10^3/uL (4.4-10.8)
[2022-12-11 14:44] LABS: Urine Bacteria FEW /hpf (None Seen); Urine Blood 3+ /uL (Negative); Urine Clarity Clear (Clear); Urine Color Colorless (Yellow); Urine Protein, UAD Negative (Negative); Urine Specific Gravity 1.022 (1.001-1.035); Urine Urobilinogen Normal (Negative); Urine WBC 4 /hpf (0 - 3)
[2022-12-11 14:56] LABS: Alanine Aminotransferase 18 U/L (7-40); Alkaline Phosphatase 173 U/L (46-116); Calcium 8.7 mg/dL (8.7-10.4); Carbon Dioxide 23 mmol/L (20-30); Chloride 79 mmol/L (98-107)
[2022-12-11 14:57] LABS: Lactic Acid w/Reflex 6.1 mmol/L (0.4-2.0)
[2022-12-11 14:57] LABS: Albumin 4.3 g/dL (3.2-4.8); Anion Gap 12 (5-15); Aspartate Aminotransferase 18 U/L (13-40); Bilirubin, Total 0.8 mg/dL (0.2-1.0); Blood Urea Nitrogen 33 mg/dL (9-23); Magnesium 1.5 mg/dL (1.6-2.6)
[2022-12-11 15:19] VITALS: PULSE 132; RESP 22; O2SAT 96
[2022-12-11] MEDS ORDERED: levoFLOXacin 500MG 100 ML IV ONE (15:30)
[2022-12-11] MEDS ORDERED: cefTRIAXone 1GM/50ML D5W 50 ML IV ONE (15:30)
[2022-12-11] MEDS ORDERED: SODIUM CHLORIDE 0.9% 3,800 ML IV ONE (15:45)
[2022-12-11 15:56] LABS: Sodium 114 mmol/L (136-145)
[2022-12-11 15:57] LABS: Glucose 1133 mg/dL (74-106)
[2022-12-11] MEDS ORDERED: CALCIUM GLUC 1,000mg/50ml-NS 50 ML IV ONE (16:00)
[2022-12-11] MEDS ORDERED: InsuLIN REG 1unit/0.01ml Soln (100units/ml) IV ONE (16:00)
[2022-12-11] MEDS ORDERED: SODIUM BICARBONATE 8.4 % INJ 50ML VIAL IV ONE (16:00)
[2022-12-11] MEDS ORDERED: ONDANSETRON HCL 4 MG/2 ML VIAL IV PRN (16:45)
[2022-12-11] MEDS ORDERED: DEXTROSE (50%) 50ML SYRG IV PRN (16:45)
[2022-12-11] MEDS ORDERED: MORPHINE SULFATE INJ 2 MG/ml SYRG IV PRN (16:45)
[2022-12-11] MEDS ORDERED: NITROGLYCERIN 0.4 MG SL TAB SL PRN (16:45)
[2022-12-11] MEDS ORDERED: InsuLIN R (HUMAN) 100 UNITS in SODIUM CHL 0.9% 99 ML IV SCH ×2 (16:45→19:30)
[2022-12-11] MEDS ORDERED: LORazepam 2MG/ML-1ML VIAL IV ONE (16:45)
[2022-12-11] MEDS ORDERED: VANCOMYCIN PER PHARMACY 0 MG IV SCH (17:00)
[2022-12-11] MEDS ORDERED: LISI20TA56 PO (17:11)
[2022-12-11] MEDS ORDERED: ATOR10TA52 PO (17:11)
[2022-12-11] MEDS ORDERED: FURO40TA4 PO (17:11)
[2022-12-11] MEDS ORDERED: PANTOPRAZOLE 40 MG/10 ML VIAL INJ IV ONE (17:15)
[2022-12-11] MEDS ORDERED: LABETALOL HCL 5 MG/ML 4ML SYRINGE IV PRN (17:15)
[2022-12-11 17:17] LABS: Amphetamine Screen, Urine Neg (NEGATIVE); Barbiturate Scree,Urine Neg (NEGATIVE); Benzodiazephine Screen, Urine Neg (NEGATIVE); Cocaine Screen, Urine Neg (NEGATIVE)
[2022-12-11 17:18] LABS: Cannabinoid Screen, Urine Neg (NEGATIVE); Opiate Scree,Urine Neg (NEGATIVE); Phencyclidine Screen, Urine Neg (NEGATIVE)
[2022-12-11 17:19] VITALS: BP 149/78; PULSE 130; RESP 20; TEMP 98.3; O2SAT 96
[2022-12-11] MEDS ORDERED: VANCOMYCIN 1GM/250ML 250 ML IV ONE (17:30)
[2022-12-11 17:55] LABS: Chloride 86 mmol/L (98-107); Potassium 5.4 mmol/L (3.5-5.1)
[2022-12-11 17:56] LABS: Anion Gap 10 (5-15); Carbon Dioxide 27 mmol/L (20-30)
[2022-12-11 18:01] LABS: BUN/Creatinine Ratio 15.5 (10.0-20.0); Blood Urea Nitrogen 32 mg/dL (9-23)
[2022-12-11 18:03] LABS: Acetaminophen < 2.0 UG/ML (10.0-20.0)
[2022-12-11 18:14] LABS: Salicylate < 3.0 mg/dL (2.8-20.0)
[2022-12-11] MEDS: ACCU-CHEK COMFORT CURVE STRIP VI SCH ×4 (18:14→22:40)
[2022-12-11 18:18] VITALS: PULSE 123; RESP 26; O2SAT 96
[2022-12-11 18:18] LABS: Base Excess 1.6 mmol/L (-2.0-2.0)
[2022-12-11] MEDS: ALBUTEROL SULF 2.5 MG/0.5ML(0.5%) NEB SOLN NEB SCH (18:18)
[2022-12-11] MEDS: IPRATROPIUM BROM 0.5 MG/2.5ML INH SOL NEB SCH (18:19)
[2022-12-11 18:21] LABS: COVID19 ANTIGEN SOFIA FIA NEGATIVE (NEGATIVE)
[2022-12-11 18:23] LABS: Sodium 123 mmol/L (136-145)
[2022-12-11 18:25] VITALS: PULSE 125; RESP 26; O2SAT 100
[2022-12-11 18:33] LABS: Glucose 979 mg/dL (74-106)
[2022-12-11] MEDS: ACETAMINOPHEN 650 MG RECT SUPP PR PRN (19:27)
[2022-12-11 19:30] VITALS: PULSE 128; RESP 26; O2SAT 97
[2022-12-11] MEDS: MEROPENEM 1GM IVPB 100 ML IV SCH (21:59)
[2022-12-11] MEDS ORDERED: SODIUM CHLORIDE 0.9% 1,000 ML IV SCH (22:45)
[2022-12-11 22:56] LABS: Chloride 100 mmol/L (98-107); Potassium 4.6 mmol/L (3.5-5.1)
[2022-12-11 22:57] LABS: Anion Gap 8 (5-15); Carbon Dioxide 28 mmol/L (20-30)
[2022-12-11 22:58] LABS: Calcium 9.2 mg/dL (8.7-10.4)
[2022-12-11 23:03] LABS: BUN/Creatinine Ratio 10.7 (10.0-20.0); Blood Urea Nitrogen 19 mg/dL (9-23)
[2022-12-11 23:04] LABS: Sodium 136 mmol/L (136-145)
[2022-12-11 23:05] LABS: Glucose 564 mg/dL (74-106)
[2022-12-12] VITALS (7 sets, daily range): PULSE 90–127; RESP 15–22; O2SAT 91–99
[2022-12-12] MEDS: ACCU-CHEK COMFORT CURVE STRIP VI SCH ×13 (00:01→22:23)
[2022-12-12] MEDS: ACETAMINOPHEN 650 MG RECT SUPP PR PRN (01:37)
[2022-12-12 05:05] LABS: Eosinophils # (auto) 0 10 ^3/uL (0-0.8); Hemoglobin 12.5 g/dL (13.5-17.5); Mean Corpuscular Hemoglobin 26.2 pg (28.0-32.0); Nucleated Red Blood Cells % 0.1 %; White Blood Cell 17.5 10^3/uL (4.4-10.8)
[2022-12-12 05:07] LABS: Basophils # (auto) 0 10 ^3/uL (0-0.2); Basophils % (auto) 0.2 % (0.0-2.0); Hematocrit 40.1 % (41.0-53.0); Lymphocytes # (auto) 0.6 10 ^3/uL (0.4-5.4); Lymphocytes % (auto) 3.6 % (10.0-50.0); Mean Corpuscular Hgb Conc. 31.1 g/dL (32.0-36.0); Mean Corpuscular Volume 84.4 fL (80.0-100.0); Monocytes % (auto) 5.7 % (0.0-12.0); Neutrophils # (auto) 15.8 10 ^3/uL (1.6-8.6); Neutrophils % (auto) 90.5 % (37.0-80.0); Red Blood Cells 4.75 10^6/uL (4.5-5.90); Red Cell Distribution Width 16.5 % (11.8-14.3)
[2022-12-12] MEDS ORDERED: InsuLIN REG 1unit/0.01ml Soln (100units/ml) ONE (05:19)
[2022-12-12 05:23] LABS: Alanine Aminotransferase 22 U/L (7-40); Albumin 4.1 g/dL (3.2-4.8); Alkaline Phosphatase 98 U/L (46-116); Anion Gap 9 (5-15); Aspartate Aminotransferase 77 U/L (13-40); BUN/Creatinine Ratio 11.3 (10.0-20.0); Blood Urea Nitrogen 14 mg/dL (9-23); Carbon Dioxide 27 mmol/L (20-30); Chloride 109 mmol/L (98-107); Cholesterol 204 mg/dL (< 200); HDL Cholesterol 44 mg/dL (40-59); LDL Cholesterol 138 mg/dL (< 100); Potassium 4.5 mmol/L (3.5-5.1); Sodium 145 mmol/L (136-145); Triglycerides 150 mg/dL (< 150)
[2022-12-12 05:24] LABS: Bilirubin, Total 0.3 mg/dL (0.2-1.0); Total Protein 7.1 g/dL (5.7-8.2)
[2022-12-12 05:27] LABS: Glucose 253 mg/dL (74-106)
[2022-12-12] MEDS ORDERED: DEXTROSE (50%) 50ML SYRG IV PRN ×2 (05:30→13:30)
[2022-12-12] MEDS: IPRATROPIUM BROM 0.5 MG/2.5ML INH SOL NEB SCH ×3 (06:13→18:57)
[2022-12-12] MEDS: ALBUTEROL SULF 2.5 MG/0.5ML(0.5%) NEB SOLN NEB SCH ×2 (06:13→11:39)
[2022-12-12] MEDS: InsuLIN REG 1unit/0.01ml Soln (100units/ml) SC SCH ×2 (08:46→13:09)
[2022-12-12] MEDS ORDERED: FUROSEMIDE 20 MG/2 ML VIAL IV SCH (10:00)
[2022-12-12] MEDS: PANTOPRAZOLE 40 MG/10 ML VIAL INJ IV SCH (10:07)
[2022-12-12] MEDS: MEROPENEM 1GM IVPB 100 ML IV SCH ×2 (10:08→23:28)
[2022-12-12] MEDS: ENOXAPARIN SOD 40 MG/0.4 ML SYRINGE SC SCH (10:10)
[2022-12-12 11:02] LABS: Chloride 105 mmol/L (98-107); Potassium 4.9 mmol/L (3.5-5.1); Sodium 140 mmol/L (136-145)
[2022-12-12 11:03] LABS: Calcium 8.8 mg/dL (8.7-10.4); Carbon Dioxide 32 mmol/L (20-30)
[2022-12-12 11:08] LABS: Blood Urea Nitrogen 19 mg/dL (9-23)
[2022-12-12 11:13] LABS: Glucose 396 mg/dL (74-106)
[2022-12-12 11:14] LABS: Anion Gap 3 (5-15)
[2022-12-12] MEDS ORDERED: InsuLIN R (HUMAN) 100 UNITS in SODIUM CHL 0.9% 99 ML IV SCH (13:30)
[2022-12-12] MEDS ORDERED: LACTATED RINGER'S 1,000 ML IV ONE (13:30)
[2022-12-12] MEDS ORDERED: INSULIN LANTUS (GLARGINE) 1 /0.01ml (100units/ml) SC ONE (13:30)
[2022-12-12] MEDS ORDERED: LORazepam 2MG/ML-1ML VIAL IV PRN (13:30)
[2022-12-12] MEDS ORDERED: METOPROLOL SUCCINATE XL 50 MG TAB PO SCH (13:44)
[2022-12-12] MEDS: SODIUM CHLORIDE 0.9% 1,000 ML IV SCH ×3 (14:00→23:58)
[2022-12-12] MEDS: VANCOMYCIN 1GM/250ML 250 ML IV SCH (15:50)
[2022-12-12] MEDS ORDERED: LEVALBUTEROL HCL 1.25 MG/3 ML NEB NEB SCH (18:00)
[2022-12-12] MEDS: METOPROLOL TARTRATE 1MG/1ML-5ML VIAL IV SCH ×2 (18:14→21:51)
[2022-12-12 18:17] LABS: Anion Gap 2 (5-15); Carbon Dioxide 32 mmol/L (20-30); Chloride 106 mmol/L (98-107); Potassium 3.9 mmol/L (3.5-5.1); Sodium 140 mmol/L (136-145)
[2022-12-12 18:18] LABS: Calcium 8.5 mg/dL (8.7-10.4)
[2022-12-12 18:23] LABS: BUN/Creatinine Ratio 15.6 (10.0-20.0); Blood Urea Nitrogen 17 mg/dL (9-23); Magnesium 1.7 mg/dL (1.6-2.6)
[2022-12-12 18:25] LABS: Phosphorus 3.1 mg/dL (2.4-5.1)
[2022-12-12 18:43] LABS: Glucose 253 mg/dL (74-106)
[2022-12-12] MEDS: LEVALBUTEROL HCL 1.25 MG/3 ML NEB NEB SCH (18:57)
[2022-12-13] VITALS (12 sets, daily range): BP systolic 105–126; BP diastolic 75–81; PULSE 86–106; RESP 14–96; TEMP 98.1–98.3; O2SAT 94–99
[2022-12-13] MEDS: ACCU-CHEK COMFORT CURVE STRIP VI SCH ×10 (00:02→22:39)
[2022-12-13] MEDS: VANCOMYCIN 1GM/250ML 250 ML IV SCH ×2 (03:32→15:19)
[2022-12-13] MEDS: METOPROLOL TARTRATE 1MG/1ML-5ML VIAL IV SCH (06:13)
[2022-12-13] MEDS: LEVALBUTEROL HCL 1.25 MG/3 ML NEB NEB SCH ×3 (06:18→18:15)
[2022-12-13] MEDS: IPRATROPIUM BROM 0.5 MG/2.5ML INH SOL NEB SCH ×3 (06:18→18:15)
[2022-12-13 09:11] LABS: Chloride 106 mmol/L (98-107); Potassium 3.9 mmol/L (3.5-5.1); Sodium 143 mmol/L (136-145)
[2022-12-13 09:12] LABS: Anion Gap 4 (5-15); Carbon Dioxide 33 mmol/L (20-30)
[2022-12-13 09:13] LABS: Calcium 8.1 mg/dL (8.5-10.1)
[2022-12-13 09:17] LABS: BUN/Creatinine Ratio 18.8 (10.0-20.0); Blood Urea Nitrogen 15 mg/dL (9-23); Glucose 156 mg/dL (74-106)
[2022-12-13] MEDS: SODIUM CHLORIDE 0.9% 1,000 ML IV SCH (09:30)
[2022-12-13] MEDS: MEROPENEM 1GM IVPB 100 ML IV SCH ×2 (10:23→22:36)
[2022-12-13] MEDS: PANTOPRAZOLE 40 MG/10 ML VIAL INJ IV SCH (10:23)
[2022-12-13] MEDS: ENOXAPARIN SOD 40 MG/0.4 ML SYRINGE SC SCH (10:23)
[2022-12-13] MEDS: INSULIN LANTUS (GLARGINE) 1 /0.01ml (100units/ml) SC SCH (10:29)
[2022-12-13] MEDS ORDERED: DEXTROSE (50%) 50ML SYRG IV PRN (10:30)
[2022-12-13] MEDS: SOD CHL 0.45% 1,000 ML IV SCH ×2 (11:15→20:15)
[2022-12-13] MEDS: InsuLIN REG 1unit/0.01ml Soln (100units/ml) SC SCH ×3 (11:40→22:38)
[2022-12-13] MEDS ORDERED: AMIODARONE HCL 200 MG TAB PO ONE (12:30)
[2022-12-13] MEDS: APIXABAN 5 MG TAB PO SCH ×2 (12:59→22:36)
[2022-12-13 14:37] LABS: Chloride 104 mmol/L (98-107); Sodium 141 mmol/L (136-145)
[2022-12-13 14:38] LABS: Anion Gap 4 (5-15); Calcium 8.3 mg/dL (8.5-10.1); Carbon Dioxide 33 mmol/L (20-30)
[2022-12-13 14:43] LABS: BUN/Creatinine Ratio 15.7 (10.0-20.0); Blood Urea Nitrogen 13 mg/dL (9-23); Glucose 208 mg/dL (74-106)
[2022-12-13 18:32] LABS: Chloride 104 mmol/L (98-107); Potassium 4.1 mmol/L (3.5-5.1); Sodium 139 mmol/L (136-145)
[2022-12-13 18:33] LABS: Anion Gap 1 (5-15); Carbon Dioxide 34 mmol/L (20-30)
[2022-12-13 18:34] LABS: Calcium 8.3 mg/dL (8.5-10.1)
[2022-12-13 18:38] LABS: Glucose 241 mg/dL (74-106)
[2022-12-13 18:39] LABS: Blood Urea Nitrogen 12 mg/dL (9-23)
[2022-12-13] MEDS: AMIODARONE HCL 200 MG TAB PO SCH (22:36)
[2022-12-13] MEDS: ATORVASTATIN 20 MG TAB PO SCH (22:37)
[2022-12-13] MEDS: METOPROLOL TARTRATE 25 MG TAB PO SCH (22:39)
[2022-12-14] VITALS (14 sets, daily range): BP systolic 105–139; BP diastolic 62–82; PULSE 82–106; RESP 18–20; TEMP 97.9–98.3; O2SAT 93–100
[2022-12-14] MEDS: VANCOMYCIN 1GM/250ML 250 ML IV SCH ×3 (03:19→23:11)
[2022-12-14 06:29] LABS: Basophils # (auto) 0 10 ^3/uL (0-0.2); Basophils % (auto) 0.2 % (0.0-2.0); Eosinophils # (auto) 0.1 10 ^3/uL (0-0.8); Eosinophils % (auto) 1.4 % (0.0-7.0); Hematocrit 33.5 % (41.0-53.0); Hemoglobin 10.5 g/dL (13.5-17.5); Lymphocytes # (auto) 1.2 10 ^3/uL (0.4-5.4); Mean Corpuscular Hemoglobin 26.3 pg (28.0-32.0); Mean Corpuscular Hgb Conc. 31.4 g/dL (32.0-36.0); Monocytes # (auto) 0.7 10 ^3/uL (0-1.3); Monocytes % (auto) 10.1 % (0.0-12.0); Neutrophils % (auto) 71.3 % (37.0-80.0); Nucleated Red Blood Cells % 0.1 %; Red Blood Cells 3.98 10^6/uL (4.5-5.90); Red Cell Distribution Width 16.4 % (11.8-14.3)
[2022-12-14] MEDS: LEVALBUTEROL HCL 1.25 MG/3 ML NEB NEB SCH ×3 (06:35→18:31)
[2022-12-14] MEDS: IPRATROPIUM BROM 0.5 MG/2.5ML INH SOL NEB SCH ×3 (06:35→18:31)
[2022-12-14] MEDS: ACCU-CHEK COMFORT CURVE STRIP VI SCH ×4 (06:36→22:27)
[2022-12-14] MEDS: InsuLIN REG 1unit/0.01ml Soln (100units/ml) SC SCH ×4 (06:37→22:27)
[2022-12-14 07:12] LABS: Alanine Aminotransferase 24 U/L (7-40); Albumin 3.3 g/dL (3.2-4.8); Alkaline Phosphatase 67 U/L (46-116); Anion Gap 5 (5-15); Aspartate Aminotransferase 31 U/L (13-40); BUN/Creatinine Ratio 12.2 (10.0-20.0); Blood Urea Nitrogen 9 mg/dL (9-23); Calcium 8.2 mg/dL (8.7-10.4); Carbon Dioxide 33 mmol/L (20-30); Chloride 101 mmol/L (98-107); Glucose 183 mg/dL (74-106); Magnesium 1.4 mg/dL (1.6-2.6); Potassium 3.9 mmol/L (3.5-5.1); Sodium 139 mmol/L (136-145)
[2022-12-14 07:13] LABS: Bilirubin, Total 0.4 mg/dL (0.2-1.0); Total Protein 5.6 g/dL (5.7-8.2)
[2022-12-14] MEDS: MEROPENEM 1GM IVPB 100 ML IV SCH ×2 (10:00→22:09)
[2022-12-14] MEDS: PANTOPRAZOLE 40 MG/10 ML VIAL INJ IV SCH (10:48)
[2022-12-14] MEDS: MAGNESIUM SULFATE 1GM/100ML 100 ML IV SCH ×2 (10:49→11:00)
[2022-12-14] MEDS: METOPROLOL TARTRATE 25 MG TAB PO SCH ×2 (10:56→22:09)
[2022-12-14] MEDS: APIXABAN 5 MG TAB PO SCH ×2 (10:57→22:08)
[2022-12-14] MEDS: AMIODARONE HCL 200 MG TAB PO SCH ×2 (10:57→22:08)
[2022-12-14] MEDS: INSULIN LANTUS (GLARGINE) 1 /0.01ml (100units/ml) SC SCH (11:00)
[2022-12-14] MEDS: SOD CHL 0.45% 1,000 ML IV SCH ×2 (11:31→17:30)
[2022-12-14] MEDS ORDERED: BLOO1KIT60 XX (11:45)
[2022-12-14] MEDS ORDERED: INSLANTI SC (11:48)
[2022-12-14] MEDS ORDERED: MAGNESIUM SULFATE 1GM/100ML 100 ML IV ONE (20:00)
[2022-12-14] MEDS: ATORVASTATIN 20 MG TAB PO SCH (22:07)
[2022-12-15] VITALS (15 sets, daily range): BP systolic 102–147; BP diastolic 43–85; PULSE 81–111; RESP 14–22; TEMP 97.9–98.2; O2SAT 91–100
[2022-12-15] MEDS: SOD CHL 0.45% 1,000 ML IV SCH (02:15)
[2022-12-15 05:47] LABS: Basophils # (auto) 0 10 ^3/uL (0-0.2); Eosinophils # (auto) 0.1 10 ^3/uL (0-0.8); Eosinophils % (auto) 1.5 % (0.0-7.0); Monocytes # (auto) 0.6 10 ^3/uL (0-1.3); Neutrophils # (auto) 4.6 10 ^3/uL (1.6-8.6)
[2022-12-15 05:49] LABS: Basophils % (auto) 0.5 % (0.0-2.0); Hematocrit 34.5 % (41.0-53.0); Lymphocytes % (auto) 15.8 % (10.0-50.0); Mean Corpuscular Volume 83.1 fL (80.0-100.0); Monocytes % (auto) 9.5 % (0.0-12.0); Neutrophils % (auto) 72.7 % (37.0-80.0); Red Blood Cells 4.15 10^6/uL (4.5-5.90); White Blood Cell 6.3 10^3/uL (4.4-10.8)
[2022-12-15 05:50] LABS: Mean Corpuscular Hemoglobin 26.6 pg (28.0-32.0); Red Cell Distribution Width 16.3 % (11.8-14.3)
[2022-12-15 06:08] LABS: Anion Gap 3 (5-15); Calcium 8.9 mg/dL (8.7-10.4); Carbon Dioxide 35 mmol/L (20-30); Chloride 101 mmol/L (98-107); Potassium 3.7 mmol/L (3.5-5.1); Sodium 139 mmol/L (136-145)
[2022-12-15 06:14] LABS: BUN/Creatinine Ratio 11.5 (10.0-20.0); Blood Urea Nitrogen 9 mg/dL (9-23); Glucose 172 mg/dL (74-106); Magnesium 1.7 mg/dL (1.6-2.6)
[2022-12-15] MEDS: IPRATROPIUM BROM 0.5 MG/2.5ML INH SOL NEB SCH ×3 (06:21→17:30)
[2022-12-15] MEDS: LEVALBUTEROL HCL 1.25 MG/3 ML NEB NEB SCH ×3 (06:21→17:30)
[2022-12-15] MEDS: ACCU-CHEK COMFORT CURVE STRIP VI SCH ×4 (06:21→22:13)
[2022-12-15] MEDS: InsuLIN REG 1unit/0.01ml Soln (100units/ml) SC SCH ×4 (06:21→22:12)
[2022-12-15] MEDS: APIXABAN 5 MG TAB PO SCH ×2 (10:21→22:05)
[2022-12-15] MEDS: PANTOPRAZOLE 40 MG/10 ML VIAL INJ IV SCH (10:21)
[2022-12-15] MEDS: AMIODARONE HCL 200 MG TAB PO SCH ×2 (10:22→22:05)
[2022-12-15] MEDS: METOPROLOL TARTRATE 25 MG TAB PO SCH ×2 (10:27→22:06)
[2022-12-15] MEDS: VANCOMYCIN 1GM/250ML 250 ML IV SCH (10:33)
[2022-12-15] MEDS: INSULIN LANTUS (GLARGINE) 1 /0.01ml (100units/ml) SC SCH (11:11)
[2022-12-15] MEDS: AMPICILLIN & SULBACTAM SODIUM 3 GM in SODIUM CHL 0.9% 100 ML IV SCH ×3 (11:15→23:56)
[2022-12-15] MEDS: SODIUM CHLORIDE 0.9% 1,000 ML IV SCH (11:15)
[2022-12-15] MEDS: TAMSULOSIN HYDROCHLORIDE 0.4 MG CAP PO SCH (18:50)
[2022-12-15] MEDS: ATORVASTATIN 20 MG TAB PO SCH (22:05)
[2022-12-16] VITALS (17 sets, daily range): BP systolic 111–135; BP diastolic 71–80; PULSE 76–107; RESP 16–20; TEMP 97.6–98.6; O2SAT 9–99
[2022-12-16] MEDS: InsuLIN REG 1unit/0.01ml Soln (100units/ml) SC SCH ×4 (05:58→21:13)
[2022-12-16] MEDS: AMPICILLIN & SULBACTAM SODIUM 3 GM in SODIUM CHL 0.9% 100 ML IV SCH ×4 (06:00→22:59)
[2022-12-16] MEDS: SODIUM CHLORIDE 0.9% 1,000 ML IV SCH ×2 (06:10→18:18)
[2022-12-16 06:19] LABS: Basophils # (auto) 0 10 ^3/uL (0-0.2); Basophils % (auto) 0.4 % (0.0-2.0); Eosinophils # (auto) 0.1 10 ^3/uL (0-0.8); Hematocrit 34.4 % (41.0-53.0); Lymphocytes # (auto) 1.2 10 ^3/uL (0.4-5.4); Monocytes # (auto) 0.6 10 ^3/uL (0-1.3); Monocytes % (auto) 8.7 % (0.0-12.0); Neutrophils # (auto) 5.4 10 ^3/uL (1.6-8.6); White Blood Cell 7.4 10^3/uL (4.4-10.8)
[2022-12-16 06:21] LABS: Eosinophils % (auto) 1.7 % (0.0-7.0); Lymphocytes % (auto) 15.7 % (10.0-50.0); Mean Corpuscular Hemoglobin 26.6 pg (28.0-32.0); Mean Corpuscular Hgb Conc. 32.1 g/dL (32.0-36.0); Mean Corpuscular Volume 83.1 fL (80.0-100.0); Neutrophils % (auto) 73.5 % (37.0-80.0); Nucleated Red Blood Cells % 0.1 %; Red Blood Cells 4.14 10^6/uL (4.5-5.90); Red Cell Distribution Width 16.5 % (11.8-14.3)
[2022-12-16 06:32] LABS: Anion Gap 5 (5-15); Carbon Dioxide 33 mmol/L (20-30); Chloride 100 mmol/L (98-107); Potassium 3.7 mmol/L (3.5-5.1); Sodium 138 mmol/L (136-145)
[2022-12-16 06:38] LABS: BUN/Creatinine Ratio 10.2 (10.0-20.0); Blood Urea Nitrogen 10 mg/dL (9-23); Glucose 232 mg/dL (74-106)
[2022-12-16] MEDS: ACCU-CHEK COMFORT CURVE STRIP VI SCH ×4 (06:38→21:12)
[2022-12-16] MEDS: IPRATROPIUM BROM 0.5 MG/2.5ML INH SOL NEB SCH ×3 (06:48→19:04)
[2022-12-16] MEDS: LEVALBUTEROL HCL 1.25 MG/3 ML NEB NEB SCH ×3 (06:48→19:04)
[2022-12-16] MEDS ORDERED: INSULIN LANTUS (GLARGINE) 1 /0.01ml (100units/ml) SC SCH (10:00)
[2022-12-16] MEDS: METOPROLOL TARTRATE 25 MG TAB PO SCH ×2 (10:26→21:18)
[2022-12-16] MEDS: AMIODARONE HCL 200 MG TAB PO SCH ×2 (10:27→21:15)
[2022-12-16] MEDS: APIXABAN 5 MG TAB PO SCH ×2 (10:29→21:14)
[2022-12-16] MEDS: TAMSULOSIN HYDROCHLORIDE 0.4 MG CAP PO SCH (18:13)
[2022-12-16] MEDS: ATORVASTATIN 20 MG TAB PO SCH (21:15)
[2022-12-17] VITALS (16 sets, daily range): BP systolic 107–124; BP diastolic 58–81; PULSE 81–113; RESP 16–20; TEMP 97.7–98.4; O2SAT 94–100
[2022-12-17] MEDS: SODIUM CHLORIDE 0.9% 1,000 ML IV SCH ×2 (03:15→16:35)
[2022-12-17] MEDS: AMPICILLIN & SULBACTAM SODIUM 3 GM in SODIUM CHL 0.9% 100 ML IV SCH ×4 (05:00→23:05)
[2022-12-17] MEDS: ACCU-CHEK COMFORT CURVE STRIP VI SCH ×4 (05:56→22:23)
[2022-12-17] MEDS: InsuLIN REG 1unit/0.01ml Soln (100units/ml) SC SCH ×4 (05:57→22:25)
[2022-12-17] MEDS: LEVALBUTEROL HCL 1.25 MG/3 ML NEB NEB SCH ×3 (07:14→18:21)
[2022-12-17] MEDS: IPRATROPIUM BROM 0.5 MG/2.5ML INH SOL NEB SCH ×3 (07:14→18:21)
[2022-12-17] MEDS: METOPROLOL TARTRATE 25 MG TAB PO SCH ×2 (10:00→22:23)
[2022-12-17] MEDS: AMIODARONE HCL 200 MG TAB PO SCH ×2 (11:40→22:22)
[2022-12-17] MEDS: APIXABAN 5 MG TAB PO SCH ×2 (11:40→22:23)
[2022-12-17] MEDS: TAMSULOSIN HYDROCHLORIDE 0.4 MG CAP PO SCH (18:07)
[2022-12-17] MEDS: ATORVASTATIN 20 MG TAB PO SCH (22:23)
[2022-12-18] VITALS (13 sets, daily range): BP systolic 108–158; BP diastolic 47–79; PULSE 79–105; RESP 16–20; TEMP 36.8; O2SAT 92–100
[2022-12-18] MEDS: IPRATROPIUM BROM 0.5 MG/2.5ML INH SOL NEB SCH ×3 (06:21→18:03)
[2022-12-18] MEDS: LEVALBUTEROL HCL 1.25 MG/3 ML NEB NEB SCH ×3 (06:22→18:03)
[2022-12-18] MEDS: AMPICILLIN & SULBACTAM SODIUM 3 GM in SODIUM CHL 0.9% 100 ML IV SCH ×3 (06:24→18:00)
[2022-12-18] MEDS: ACCU-CHEK COMFORT CURVE STRIP VI SCH ×3 (06:24→17:00)
[2022-12-18] MEDS: SODIUM CHLORIDE 0.9% 1,000 ML IV SCH (06:24)
[2022-12-18] MEDS: InsuLIN REG 1unit/0.01ml Soln (100units/ml) SC SCH ×3 (06:28→18:39)
[2022-12-18] MEDS: AMIODARONE HCL 200 MG TAB PO SCH (10:00)
[2022-12-18] MEDS: METOPROLOL TARTRATE 25 MG TAB PO SCH (10:00)
[2022-12-18] MEDS ORDERED: INSULIN LANTUS (GLARGINE) 1 /0.01ml (100units/ml) SC SCH (10:00)
[2022-12-18] MEDS: APIXABAN 5 MG TAB PO SCH (10:43)
[2022-12-18] MEDS: TAMSULOSIN HYDROCHLORIDE 0.4 MG CAP PO SCH (18:02)
[2022-12-19 10:07] LABS: PSA Free 5.18 ng/mL; Prostate Specific Antigen 31.7 ng/mL (0.0-4.0)
== END 2022-12-18 18:35 | DRG 871 ==
LOC: ER 13:56 → EDBD 13:56 → TELE 16:42 → TELE-EAST 12-13 13:40
PROVIDERS: ADMIT Nurse Practitioner Family; ATTEND Nurse Practitioner Acute Care
DX: A41.81 Sepsis due to Enterococcus (principal); E11.10 Type 2 diabetes mellitus with ketoacidosis without coma; G93.41 Metabolic encephalopathy; J96.21 Acute and chronic respiratory failure with hypoxia; N17.0 Acute kidney failure with tubular necrosis; I21.A1 Myocardial infarction type 2; I50.32 Chronic diastolic (congestive) heart failure; N30.00 Acute cystitis without hematuria; E87.1 Hypo-osmolality and hyponatremia; N13.8 Other obstructive and reflux uropathy; I48.20 Chronic atrial fibrillation, unspecified; Z20.822 Contact with and (suspected) exposure to COVID-19; R65.20 Severe sepsis without septic shock; E86.0 Dehydration; I11.0 Hypertensive heart disease with heart failure; J44.9 Chronic obstructive pulmonary disease, unspecified; E87.5 Hyperkalemia; E11.65 Type 2 diabetes mellitus with hyperglycemia; E87.8 Other disorders of electrolyte and fluid balance, not elsewhere classified; N40.1 Benign prostatic hyperplasia with lower urinary tract symptoms; E78.5 Hyperlipidemia, unspecified; E66.01 Morbid (severe) obesity due to excess calories; G47.33 Obstructive sleep apnea (adult) (pediatric); E11.21 Type 2 diabetes mellitus with diabetic nephropathy; Z90.49 Acquired absence of other specified parts of digestive tract; Z79.899 Other long term (current) drug therapy; Z79.4 Long term (current) use of insulin; Z79.01 Long term (current) use of anticoagulants; Z83.3 Family history of diabetes mellitus; Z82.49 Family history of ischemic heart disease and other diseases of the circulatory system; Z80.1 Family history of malignant neoplasm of trachea, bronchus and lung; Z82.5 Family history of asthma and other chronic lower respiratory diseases; Z87.891 Personal history of nicotine dependence; Z68.34 Body mass index [BMI] 34.0-34.9, adult
CPT/HCPCS: 36415; 36600; 70450; 71045; 74018; 74177; 76775; 80048; 80053; 80061; 80202; 80307; 80320; 80329; 81001; 82010; 82565; 82805; 82962; 83036; 83605; 83735; 83880; 83930; 84100; 84154; 84443; 84484; 85025; 87040; 87077; 87086; 87186; 87426; 93005; 93306; 94640; 94644; 96365; 96375; 97110; 97116; 97163; 97530; 99291; C9113; G0378; J0696; J1815; J1956; J2185